=== PATIENT | male | born 1950 | race Caucasian/White ===

== ENCOUNTER → 2017-02-26 | Outpatient (CLI) | payer OTHER ==
[~2017-02-26] MED LIST: LISI10TA PO; PSEU30TA20 PO; ZOLP10TA PO
[2017-02-26 14:51] LABS: BASO % 0.7 %; BASO ABS # 0.04 K/uL (0-0.2); COMPLETE YES; EOS % 4.5 %; HEMATOCRIT 44.8 % (42-52); IG% 0.3 %; LYMPH % 29.9 %; LYMPH ABS # 1.74 K/uL (1.2-3.4); MEAN CELL VOLUME 85.7 fL (80-100); MEAN CORPUSCULAR HEMOGLOBIN 29.6 pg (25-34); MEAN CORPUSCULAR HGB CONC 34.6 g/dl (32-36); MEAN PLATELET VOLUME 10.8 fL (7.4-10.4); MONO % 12.2 %; NEUT % 52.4 %; PLATELET COUNT 281 K/uL (130-400); RED BLOOD COUNT 5.23 M/uL (4.7-6.1); WHITE BLOOD COUNT 5.82 K/uL (4.8-10.8)
[2017-02-26 15:05] LABS: ALT/SGPT 45 U/L (12-78); AST/SGOT 34 U/L (15-37); BLOOD UREA NITROGEN 12 mg/dl (7-18); BUN/CREATININE RATIO 9.3 (10-20); CALCIUM 8.8 mg/dl (8.5-10.1); CARBON DIOXIDE 25 mmol/L (21-32); CHLORIDE 107 mmol/L (98-107); GLUCOSE 103 mg/dl (70-99); POTASSIUM 4.3 mmol/L (3.5-5.1); SODIUM 139 mmol/L (136-145)
[2017-02-26 15:11] LABS: ALB/GLOB RATIO 1.2 (0.9-2); ALKALINE PHOSPHATASE 50 U/L (45-117); CHOLESTEROL 201 mg/dl (0-200); CHOLESTEROL/HDL RATIO 3.9; HDL CHOLESTEROL 52 mg/dl; LDL CHOLESTEROL CALCULATED 98 mg/dl; TRIGLYCERIDES 253 mg/dl (0-150); VERY LOW DENSITY LIPOPROT CALC 51 mg/dl
== END | disposition home or self-care (01) ==
LOC: C.LABSPEC 14:13
PROVIDERS: ATTEND Family Medicine
DX: Z00.00 Encounter for general adult medical examination without abnormal findings (principal); I10 Essential (primary) hypertension; Z12.5 Encounter for screening for malignant neoplasm of prostate; J30.9 Allergic rhinitis, unspecified